=== PATIENT | male | born 2000 | race Two or more races ===

== ENCOUNTER 2023-07-13 11:12 | Outpatient (AMB) | payer OTHER, SELFPAY ==
--- NOTE | 2023-07-13 11:14 | MHC.OFFWIV ---
Intake Intake Visit Reasons: EST/cough(lobby masked) Intake Note: pt is here for c.o cough Coding
--- NOTE | 2023-07-13 11:14 | MHC.OFFWIV ---
Intake Vital Signs 07/13/23 11:16 Height 5 ft 9 in Weight 180 lb 4 oz BMI 26.6 BP 110/70 Blood Pressure Location Rt brachial Position Sitting Pulse 71 Pulse Source Pulse Oximeter Temp 98.1 F Temp Source Oral Pulse Oximetry (%) 97 Oxygen Delivery Method Room Air Intake Visit Reasons: EST/cough(lobby masked) Intake Note: Pt is here c/o cough for about one week. Pt states he has been having a headache for a few days as well as a bloody nose. Patient Tobacco Use Status: Never used Tobacco Allergies No Known Allergies Allergy (Verified 07/13/23 11:36) Medication List - Last Reconciled 07/13/23 by Stefan Sexton MD No Known Home Meds Do you need a note to return to daycare/school/sports/work: No HPI EST/cough(lobby masked) HPI Details 22-year-old male presents to the office requesting a COVID test. Patient works in the . He was asked to come here by his employer for a test. Patient has minimal symptoms of cough. PFS Social History Patient Tobacco Use Status: Never used Tobacco Physical Exam Vital Signs: Last Vital Signs Temp 98.1 F 07/13/23 11:16 Pulse 71 07/13/23 11:16 BP 110/70 07/13/23 11:16 Pulse Ox 97 07/13/23 11:16 Oxygen Delivery Method Room Air 07/13/23 11:16 BMI result Body Mass Index 26.6 Const General: cooperative, healthy appearing, comfortable and no acute distress Assessment & Plan Assessment & Plan (1) Upper respiratory tract infection: Code(s): J06.9 - Acute upper respiratory infection, unspecified Plan Viral etiology. No antibiotics needed. COVID testing done. Results given to the patient via the letter. Orders: Orders BinaxNOW Covid-19 Ag Today J06.9 - Acute upper respiratory infection, unspecified Coding Level of Care Code Est Pt Level 3 (96471) Diagnoses Upper respiratory tract infection J06.9
[2023-07-13 11:16] VITALS: BP 110/70; PULSE 71; TEMP 36.7; O2SAT 97; BMI 26.6
== END 2023-07-13 11:40 | disposition home or self-care (01) ==
PROVIDERS: Visit Provider Internal Medicine
DX: J06.9 Acute upper respiratory infection, unspecified (principal)
CPT/HCPCS: 99213

== ENCOUNTER 2023-07-13 11:27 | Outpatient (REF) | payer OTHER, SELFPAY ==
[2023-07-13 11:56] LABS: Binax Now Covid-19 Ag Negative (Negative)
[2023-07-13 12:04] LABS: Binax Performed by: HO.BONILM
[2023-07-13 12:05] LABS: Binax Internal Control QC Valid
== END 2023-07-13 11:28 | disposition home or self-care (01) ==
LOC: HO.HMGCLDS 11:27
PROVIDERS: Visit Provider Internal Medicine
DX: J06.9 Acute upper respiratory infection, unspecified (principal); Z11.52 Encounter for screening for COVID-19
CPT/HCPCS: 87811

== ENCOUNTER 2023-07-29 14:09 | Outpatient (AMB) | payer OTHER, SELFPAY ==
--- NOTE | 2023-07-29 14:40 | MHC.OFFWIV ---
Intake Vital Signs 07/29/23 14:42 Height 5 ft 9 in Weight 180 lb BMI 26.6 BP 108/68 Blood Pressure Location Lt brachial Position Sitting Pulse 72 Pulse Source Pulse Oximeter Temp 98.9 F Temp Source Oral Pulse Oximetry (%) 98 Intake Visit Reasons: EST/rash in armpits(lobby) Intake Note: pt is here for rash on armpits, unsure the cause and states its been on going for a few weeks and there is drainage Patient Tobacco Use Status: Never used Tobacco Allergies No Known Allergies Allergy (Verified 07/29/23 14:44) Do you need a note to return to daycare/school/sports/work: Yes HPI HPI Comments History of Present Illness Details 22 male patient who presents to walk in clinic with c/o lesions on axilla. Reports noticing the rash 2 weeks ago. PFSH Social History Patient Tobacco Use Status: Never used Tobacco Review of Systems Const All systems reviewed & are unremarkable except as noted in HPI and below Physical Exam Vital Signs: Last Vital Signs Temp 98.9 F 07/29/23 14:42 Pulse 72 07/29/23 14:42 BP 108/68 07/29/23 14:42 Pulse Ox 98 07/29/23 14:42 BMI result Body Mass Index 26.6 Const General: comfortable and no acute distress Skin General skin exam: turgor normal, erythema and lichenification Rashes: rashes noted (Left Axilla, red patches ) Assessment & Plan Assessment & Plan (1) Intertrigo: Code(s): L30.4 - Erythema intertrigo Plan: - Keep Area dry and clean - No deodorant Medications: New clotrimazole-betamethasone 1-0.05 % 1 appl topical BID 2 weeks 45 grams 0RF L30.4 - Erythema intertrigo hydroxyzine HCl 25 mg PO BEDTIME 14 tabs 0RF L30.4 - Erythema intertrigo Coding Level of Care Code Est Pt Level 3 (80431) Diagnoses Intertrigo L30.4 Time Spent (min) 15
[2023-07-29 14:42] VITALS: BP 108/68; PULSE 72; TEMP 37.2; O2SAT 98; BMI 26.6
== END 2023-07-29 15:56 | disposition home or self-care (01) ==
PROVIDERS: Visit Provider Nurse Practitioner Family
DX: L30.4 Erythema intertrigo (principal)
CPT/HCPCS: 99213

== ENCOUNTER 2023-09-30 08:41 | Outpatient (AMB) | payer OTHER, SELFPAY ==
[2023-09-30 08:43] VITALS: BP 110/64; PULSE 80; TEMP 36.1; O2SAT 97; BMI 27.9
--- NOTE | 2023-09-30 08:43 | AM.OFFWIN_ITS ---
Intake Vital Signs 09/30/23 08:43 Height 5 ft 9 in Weight 189 lb BMI 27.9 BP 110/64 Blood Pressure Location Lt brachial Position Sitting Pulse 80 Pulse Source Pulse Oximeter Temp 97.0 F Temp Source Temporal Artery Scan Pulse Oximetry (%) 97 Oxygen Delivery Method Room Air Intake Visit Reasons: EP RT Wallace injury Intake Note: pt is here today for rt wallace inury started wednesday Patient Tobacco Use Status: Never used Tobacco Allergies No Known Allergies Allergy (Verified 09/30/23 08:50) Do you need a note to return to daycare/school/sports/work: Yes HPI EP RT Wallace injury HPI Details This is a 22 year old male patient who presents today with right anterior ankle pain. He states he started playing indoor soccer this past Wednesday evening, and was kicked several times in the front of his right wallace/ankle. It is now sore. He denies any fall or twisting of ankle. He has put ice on the ankle for the past 2 nights. He is able to bear weight. Denies any warmth, swelling, or bruising. Is in the [employer] and has PT tomorrow which he is concerned about. [facility] Social History Patient Tobacco Use Status: Never used Tobacco Review of Systems Const All systems reviewed & are unremarkable except as noted in HPI and below Physical Exam Vital Signs: Last Vital Signs Temp 97.0 F 09/30/23 08:43 Pulse 80 09/30/23 08:43 BP 110/64 09/30/23 08:43 Pulse Ox 97 09/30/23 08:43 Oxygen Delivery Method Room Air 09/30/23 08:43 BMI result Body Mass Index 27.9 Const General: cooperative, healthy appearing, comfortable and no acute distress Resp Effort & Inspection: normal respiratory effort Skin General skin exam: no rashes or lesions noted Extrem Right lower extremity: ankle (no swelling, bruising, or crepitus, mild ttp anterior ankle) Details: normal to inspection, no edema and normal ROM and foot (normal foot exam) Details: vascular exam Details: dorsalis pedis pulse present, posterior tibial pulse present and normal capillary refill Psych Appearance: grossly normal Mental Status: mental status grossly normal Speech and movement: Normal speech and movement present Assessment & Plan Assessment & Plan (1) Right ankle injury: Code(s): S99.911A - Unspecified injury of right ankle, initial encounter Qualifiers: Encounter type: initial encounter Qualified Code(s): S99.911A - Unspecified injury of right ankle, initial encounter Plan: Patient likely has mild sprain vs. soft tissue injury at the anterior aspect of his right ankle. No swelling, bruising, warmth, crepitus. LE exam is normal. I have prescribed him an antiinflammatory and applied MK wrap to that right ankle today. Advised he apply ice intermittently and elevate when able to. Work note provided to omit him from PT with [employer] tomorrow as scheduled and for allowed rest on ankle for the next several days. If he does not improve with time and conservative measures, or if any symptoms worsen, he should return to the clinic for further evaluation. He agrees to plan. Medications: New meloxicam 15 mg PO DAILY 7 days 7 tabs 0RF S99.911A - Unspecified injury of right ankle, initial encounter Coding Level of Care Code Est Pt Level 4 (65708) Diagnoses Injury of right ankle, initial encounter S99.911A Encounter type: initial encounter
== END 2023-09-30 09:21 | disposition home or self-care (01) ==
PROVIDERS: Visit Provider Nurse Practitioner Family
DX: S99.911A Unspecified injury of right ankle, initial encounter (principal)
CPT/HCPCS: 99214

== ENCOUNTER 2024-01-19 09:00 | Outpatient (AMB) | payer OTHER, SELFPAY ==
[2024-01-19 09:50] VITALS: BP 120/82; PULSE 88; TEMP 37.1; O2SAT 98; BMI 28.1
--- NOTE | 2024-01-19 09:50 | AM.OFFWIN_ITS ---
Intake Vital Signs 01/19/24 09:50 Height 5 ft 9 in Weight 190 lb 8 oz BMI 28.1 BP 120/82 Blood Pressure Location Rt brachial Position Sitting Pulse 88 Pulse Source Pulse Oximeter Temp 98.8 F Temp Source Temporal Artery Scan Pulse Oximetry (%) 98 Oxygen Delivery Method Room Air Intake Visit Reasons: EP headache, runny nose, sore throat Intake Note: Quentin is a 23 year old who presents to the office today for a headache,runny nose, and sore throat that started yesterday and got worse overnight. Patient Tobacco Use Status: Never used Tobacco Allergies No Known Allergies Allergy (Verified 01/19/24 09:52) HPI HPI Comments History of Present Illness Details Patient is a 23-year-old male complaining of a headache, sore throat and runny nose x2 days. He denies any ear pain, chest pain, shortness of breath or fevers. He states he took some DayQuil before bed last night and that seemed to help a little bit. He denies any sick contacts at home [facility] Social History Patient Tobacco Use Status: Never used Tobacco Review of Systems Const All systems reviewed & are unremarkable except as noted in HPI and below Physical Exam Vital Signs: Last Vital Signs Temp 98.8 F 01/19/24 09:50 Pulse 88 01/19/24 09:50 BP 120/82 01/19/24 09:50 Pulse Ox 98 01/19/24 09:50 Oxygen Delivery Method Room Air 01/19/24 09:50 BMI result Body Mass Index 28.1 Const General: cooperative, healthy appearing, comfortable and no acute distress Orientation/consciousness: patient oriented x3 Limitations: no limitations HEENT Head: Yes normal to inspection Ears: hearing grossly normal bilaterally, external ears normal and TM abnormal erythematous bilateral General nose exam: Normal external nose present, Normal nares present and No nasal discharge present Face and sinus: Yes normal facial exam and Yes sinus tenderness (Ethmoid) Mouth: Normal oral and palatal mucosa present and moist mucous membranes Throat: Yes tonsils normal, Yes uvula midline and Yes posterior oropharynx abnormal (Erythema) Eyes General: appearance normal, both eyes and all related structures Neck Neck: Yes normal visual inspection Resp Effort & Inspection: normal respiratory effort, able to speak in complete sentences, no respiratory distress, not tachypneic, no tripod positioning and no use of accessory muscles Auscultation: clear to auscultation bilaterally Cardio Rate: regular rate Rhythm: regular rhythm Heart sounds: normal S1 and S2 Skin General skin exam: no rashes or lesions noted Neuro General: patient oriented x3 Extrem General: Yes normal to inspection and Yes no clubbing, cyanosis or edema Results AMB Rapid Strep AMB Rapid Strep Negative Last Edit by Louise Whittaker CMA on 01/19/24 10:07 Assessment & Plan Assessment & Plan (1) Acute sinusitis: Code(s): J01.90 - Acute sinusitis, unspecified Plan: Likely sinusitis, possibly secondary to COVID. In office rapid strep was negative. Educated patient that most sinus infections are viral and he should treat himself with [id number] cold and allergy medications, nasal saline rinses and drinking plenty of fluids. Plan See above Orders: Orders AMB Rapid Strep Screen Today Z13.9 - Encounter for screening, unspecified SARS-CoV2/FLU/RSV Today J06.9 - Acute upper respiratory infection, unspecified Coding Level of Care Code New Pt Level 3 (60833) Diagnoses Acute sinusitis J01.90
== END 2024-01-19 10:17 | disposition home or self-care (01) ==
PROVIDERS: Visit Provider Physician Assistant
DX: Z13.9 Encounter for screening, unspecified (principal); J01.90 Acute sinusitis, unspecified
CPT/HCPCS: 87880; 99203

== ENCOUNTER 2024-01-19 10:11 | Outpatient (REF) | payer OTHER, SELFPAY ==
[2024-01-19 14:11] LABS: Influenza A PCR NEGATIVE (Negative); Influenza B PCR NEGATIVE (Negative); Resp Syncy Virus RNA Qual PCR NEGATIVE (Negative); SARS COV2 PCR INHOUSE POSITIVE (Negative)
== END 2024-01-19 10:12 | disposition home or self-care (01) ==
LOC: HO.LAB 10:11
PROVIDERS: Visit Provider Physician Assistant
DX: J06.9 Acute upper respiratory infection, unspecified (principal)
CPT/HCPCS: 0241U

== ENCOUNTER 2024-07-12 08:17 | Outpatient (REF) | payer OTHER, SELFPAY ==
--- NOTE | ~2024-07-12 | XR_ITS ---
EXAMINATION: XR TIBIA FIBULA 2 VIEWS LEFT HISTORY: S86.248Y - Other injury of other muscle(s) and tendon(s) at lower leg le... COMPARISON: There are no prior studies available for comparison. FINDINGS: AP and lateral views of the left tibia and fibula are submitted. Osseous mineralization is normal. There is a tiny lucency in the anterolateral cortex of the midshaft of the tibia which could represent a stress reaction. No displaced fracture is seen . The visualized knee and ankle joint spaces are maintained. The soft tissues are unremarkable. XR/XR tibia fibula LT 2V IMPRESSION: Tiny lucency in the anterolateral cortex of the mid tibia which could represent a stress reaction. This could be confirmed with MRI if indicated. Electronically signed by: Lei Villavicencio MD 07/12/2024 10:15 AM JUDY BRITO
--- OUTSIDE RECORDS SUMMARY | 2024-07-12 09:49 | XMS_ITS | Continuity of Care Document ---
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 [address] [place], [address], . tel:[phone] OFFICE/OUTPAT IENT VISIT, EST [facility], [address], [place], [id number], [place] tel:[phone] MEDICAL WC rash on legs (chief complaint) Rash and other nonspecific skin eruption 2 No Information [facility], [address] [place], [id number], [place] tel:[phone] MEDICAL WC No Information 2-201 0 Ancillary Provider. [address] [place], [address], . tel:[phone] PREV VISIT, EST, AGE 5-11YRS OLD [facility], [address], [place], [id number], tel:[phone] MEDICAL WC No Information October- 0-201 0 Xavier Li. [address] [place], [address], [place]. tel:[phone] Family History Family Member Type Diagnosis Age At Onset No Information Payers Payer name Insurance type Covered alliance party ID Authoriza tion(s) No Information Social [...]
--- OUTSIDE RECORDS SUMMARY | 2024-07-12 09:49 | XMS_ITS | Continuity of Care Document ---
Author Name [facility] Organization [facility] Care Team Providers Care Schedule Clerk Name Role Phone [facility] Unavailable Unavailable Medications Combined list of outpatient [...] Acute, 11/05/21 2:00:00 AM CDT, Pharmacy : [facility] Oral (given by mouth) Complet ed 11/05/2021 16.0 [facility]30[facility] CLOTRIMAZOL E-BETAMETHA SONE (CLOTRIMAZO LE/BETAMET DIPROP), 1-0.05%, CREAM(GM), TOPICAL, ACTAVIS MID LINDA, 45 g TUBE Active [id number] 2023 45 Pharmac y Data Transac tion Service Facilit y guaiFENesin 600 mg oral tablet, extended release 1 tab(s), Oral, every 12 hr, # 20 tab(s), 0 total refill(s ), Acute, 10/25/21 2:00:00 AM CDT, Pharmacy : [facility] Oral (given by mouth) Complet ed 10/25/2021 20.0 [facility] hydrocortis one 1% topical cream 1 appl(s), Topical, BID, apply in a thin film to the affected skin and rub in gently and complete ly, # 28 g, 0 total refill(s ), Acute, Pharmacy : [facility] Topica l (on the skin) Complet ed 11/07/2021 28.0 [facility]30[facility] HYDROXYZINE HCL (hydroxyzin e HCl), 25 MG, TABLET, ORAL, AVET PHARMACEUT, 500 ea. BOTTLE Active [id number] 4 2023 14 Pharmac y Data Transac tion Service Facilit y ibuprofen 800 mg oral tablet 1 tab(s), Oral, every 8 hr, with food or milk, # 12 tab(s), 0 total refill(s ), Acute, 10/11/21 2:00:00 AM CDT, Pharmacy : [facility] Oral (given by mouth) Complet ed 10/11/2021 12.0 [facility] Meloxicam (Meloxicam) , 15mg, Tablet, Oral, [employer] Pharmac, 1000 Ea. Bottle Active [id number] 2023 7 Pharmac y Data Transac tion Service Facilit y menthol-pradeep zocaine 3.6 mg-15 mg mucous membrane lozenge 1 lozenge( s), Oral, every 2 hr, PRN sore throat, # 16 EA, 0 total refill(s ), Acute, 10/21/21 2:00:00 AM CDT, Pharmacy : [facility] Oral (given by mouth) Complet ed 10/21/2021 16.0 [facility] Mucinex 600 mg oral tablet, extended release 1 tab(s), Oral, every 12 hr, # 20 tab(s), 0 total refill(s ), Acute, 11/05/21 2:00:00 AM CDT, Pharmacy : [facility] Oral (given by mouth) Complet ed 11/05/2021 20.0 [facility] pseudoePHED rine 120 mg oral tablet, extended release 1 tab(s), Oral, every 12 hr, PRN cold symptoms , # 10 tab(s), 0 total refill(s ), Acute, 10/21/21 2:00:00 AM CDT, Pharmacy : [facility] Oral (given by mouth) Complet ed 10/21/2021 10.0 [facility]30[facility] Tessalon Perles 100 mg oral capsule 1 cap(s), Oral, every day at bedtime, PRN cough, do not crush or chew, X 10 days, # 10 cap(s), 0 total refill(s ), Acute, 10/26/21 9:56:00 AM CDT, Pharmacy : [facility] Oral (given by mouth) Complet ed 10/26/2021 10.0 [facility] Tylenol 325 mg oral tablet 2 tab(s), Oral, every 6 hr, PRN pain or fever, # 12 tab(s), 0 total refill(s ), Acute, 10/21/21 2:00:00 AM CDT, Pharmacy : [facility] Oral (given by mouth) Complet ed 10/21/2021 12.0 [facility] Immunizations Combined list of available immunizations from the Department of Defense and Veterans Affairs facilities. Immunization Series Date Given Administered By Site Reaction Lot Number CVX Code Drug Operations Manager/Coordinator Status Comments Source poliovirus vaccine, inactivated 2021 CARLY ER Arm, left upper [id number] sanofi pasteur complet ed polioviru s vaccine, inactivat ed 12/16/21 Given [facility] adenovirus vaccine, live 2021 CHIDIOANYATA [id number] 143 [employer] [facility] complet ed adenoviru s vaccine, live 11/14/21 Given [facility] tetanus, diphtheria, acellular pertu is 2021 ELTON Garzaul mari, left (delt oid) [id number] sanofi pasteur complet ed tetanus, diphtheri a, acellular pertussis 11/14/21 Given [facility] meningococcal conjugate vaccine 2021 ELTON Garzaul mari, left (delt oid) [id number] 114 sanofi pasteur complet ed meningoco ccal conjugate vaccine 11/14/21 Given [facility] COVID Vaccine Pfizer 2021 VANESSAMONTIE L Shoul mari, left (delt oid) [id number] PFIZER complet ed COVID Vaccine Pfizer 09/30/21 Given [facility] tuberculin purified protein derivative 2021 TAYLORPROBINS ON Arm, left forea rm [id number] sanofi pasteur complet ed tuberculi n purified protein derivativ e 09/30/21 Given [facility] influenza virus vaccine, inactivated 2021 CHEJUAN FRANCISCOPALM ER Shoul mari, right (delt oid) [id number] GlaxoSmithKli ne complet ed influenza virus vaccine, inactivat ed 09/30/21 Given [facility] Results Combined list of recent chemistry, hematology [...] Prevention' s HIV diagnostic algorithm. Refer to [facility] Lab Guide for additional information : [email or web address] x Testing performed by [facility] Miscella neous Sendouts Repository Sample Received (12/27/23 9:04 AM) 12/26 N [facility] Hematolo gy WBC 8.74 10^3/uL 4.00 - 10.75975 10/29 N [facility] Hematolo gy RBC 5.10 10^6/uL 4.40 - 5.61609 10/29 N [facility] Hematolo gy [...] Hematolo gy Platelets 245 10^3/uL 150 - [id number] 10/29 N [facility] Hematolo gy MPV 10.7 fL 6.4 - 10.3 10/29 H [facility] Hematolo gy RDW CV 12.7 % 11.5 - 14.0 10/29 N [facility] Hematolo gy Differenti al? Auto (10/29/21 9:33 AM) 10/29 N [facility] Immunolo gy/Serol ogy [place] Screen Negative (10/29/21 9:33 AM) 10/29 N [facility] Hematolo gy Neutro Absolute 5.8 10^3/uL 2.0 - 7.0103 10/29 N [facility] Hematolo gy Lymph Absolute 1.97 10^3/uL 1.00 - 4.60027 10/29 N [facility] Hematolo gy [place] Absolute 0.58 10^3/uL 0.20 - 0.77150 10/29 N [facility] Hematolo gy Eos Absolute 0.28 10^3/uL 0.00 - 7.24689 10/29 N [facility] Hematolo gy Baso Absolute 0.06 10^3/uL 0.00 - 0.28845 10/29 N [facility] Hematolo gy Imm. Granulocyt e Absolute 0.05 10^3/uL 0.00 - 0.96429 10/29 N [facility] Hematolo gy [...] following a hemolytic event. [facility]formed At: [facility] [address] Belinda Aguilar [address] [place], [place] [id number] Vazquez Rubio MD Ph:[phone] [facility] Immunolo gy/Serol ogy [...] LC NEGATIVE 09/30 Result Comment: Performed At: [address] [place] [address] FOR DISEASE DETECTION [address] [place] [address] [address] [place] [address] ALEJO LARKIN PHD Ph:[phone] [facility] Hematolo gy HgB Solub.LC Negative 09/30 Result Comment: Since a variety of conditions and other abnormal hemoglobins in addition to Hemoglobin S may give false- positive results, positive Hemoglobin Solubility tests should be confirmed by hemoglobin fractionati on testing. [facility]formed At: [facility] [address] [place] [address] [id number] Vazquez Rubio MD Ph:[phone] [facility] Blood Bank ABO Grouping.L C O 09/30 [facility] Blood Bank Rh Factor.LC Positive 09/30 Result Comment: Please note: Prior records for this patient's ABO / Rh type are not available for additional verificatio n. [facility]formed At: [facility] [address] [place]ino [facility] [address] [place], [place] [id number] Vazquez Rubio MD Ph:[phone] [facility] Immunolo gy/Serol ogy [...] or previous vaccination . Performed At: 01 [facility] [place] [address] Belinda Aguilar [address] [place], [place] [id number] Vazquez Rubio MD Ph:[phone] [facility] Immunolo gy/Serol ogy VZV IgG LC 307 index 09/30 Result Comment: Negative <135 Equivocal 135 - 165 Positive >165 A positive result generally indicates exposure to the pathogen or administrat ion of specific immunoglobu shira, but it is not indication of active infection or stage of disease. Performed At: [address] [facility] [place] [address] Belinda Aguilar [address] [place], [place] [id number] Vazquez Rubio MD Ph:[phone] [facility] Vital Signs Combined [...] list of: 1) Encounters from Department of [facility] facilities going back up to [facility] 18 months. 2) Encounters from the Department [facility] facilities going back up to 280 months. Location Location Details Encounter Type Encounter Number Reason For Visit Attending Provider ADM Date DC Date Status Disposition Source [id number] [facility] Outpatient [id number] [facility] 12/26 Discharge Disposition: Home or Self Care [id number] AMDS [id number] AMDS Outpatient [id number] [facility] 01/16 Discharge Disposition: Home or Self Care [id number] AMDS Procedures Combined list of: 1) Procedures from [facility] facilities going back up to [facility] 18 months, not all VA non-surgical procedures are included; 2) All procedures from the Department of [facility] facilities. Procedure Procedure Type Code Date Perfomer Comments Sourc e No data available for this section Ambulatory P harmacy Social History Combined list of available smoking, tobacco, and other social history from Department of Defense and Veterans Affairs facilities. Social History Type Response Date Comment Emir laws Male 09/25/2021 Ambulatory Pha rmacy This section is an empty social history section. [facility] Tobacco Never-cigarette user Cigarette use:. Never-other tobacco user (not cigarettes) Other Tobacco use:. Ambulatory Pharmacy Sexual Orientation [facility]acy Gender identity [facility] Assessment and Plan Combined list of future care activities from Department of Defense and Veterans Affairs facilities (e.g., assessment and plan notes, appointments, orders, and referrals). Additional future care activities may be listed in the Plan of Care section. Result Assessment and Plan Date Source Assessment and Plan Extracted from:Title : OSS Author: YOLANDA UGALDE Date: 05/06/22 1.?Screening due see uploaded signed forms. [facility] Yolanda Ugalde [facility], [phone] Extracted from:Title: FU Rash to Lower Mid-axillary [...] soaked clothing immediately. ? Follow up in [facility] Medical PRN if symptoms persists or worsened. [...] with:?Dermatitis ?? PCP ? Follow up in [facility] as needed. Seek care immediately if with [...] prescribed. ? PCP ? Follow up in [facility] as needed. Seek care immediately if with Intractable Pain, Fever, Chest Pain or Difficulty Breathing. Educated on assessment and plan. He voiced understanding. ? I agree with above note and assessment. ? Examined patient. Negative [place] Screen. No leukocytosis. CXR Normal ? Discussed [...] 2 hr,PRN:as needed for sore throat, Pharmacy: [facility] [Last filled 10/29/21] guaiFENesin(Mucinex 600 mg oral tablet, extended release), 1 tab(s), Oral, every 12 hr, # 20 tab(s), 0 total refill(s), Acute, 11/05/2021, 1 tab(s) Oral every 12 hr, Pharmacy: [facility] [Last filled 10/29/21] pseudoephedrine(pseudoePHEDrine 120 mg oral tablet, extended release), 1 tab(s), Oral, every 12 hr, PRN cold symptoms, # 20 tab(s), 0 total refill(s), Acute, 11/05/2021, 1 tab(s) Oral every 12 hr,PRN:as needed for cold symptoms, Pharmacy: [facility] [Last filled 10/29/21] benzonatate(Tessalon Perles 100 mg oral capsule), See Instructions, PRN cough, Take 1 pill 30 minutes prior to bed, # 8 cap(s), 0 total refill(s), Acute, 11/06/2021, Take 1 pill 30 minutes prior to bed,PRN:as needed for cough, Pharmacy: [facility] [Last filled 10/29/21] acetaminophen(Tylenol 325 mg oral tablet), 1 tab(s), Oral, every 4 hr, PRN pain or fever, # 12 tab(s), 0 total refill(s), Acute, 11/05/2021, 1 tab(s) Oral every 4 hr,PRN:as needed for pain or fever, Pharmacy: [facility] [Last filled 10/29/21] *Differential Automated Extracted [...] PCP Phase 3. ? Follow up in [facility] PRN. Seek care immediately if with Intractable Pain, Fever, Chest Pain or Difficulty Breathing. Educated on assessment and plan. He voiced understanding. ? Agree with above. HD stable and afebrile. Supportive care. Plan as above. ? [facility]itt [facility], [facility] Phys[facility]? Extracted from:Title: Office Clinic Note Author: KADE [...] ? PCP?Phase 3 ? Follow up in [facility] for RTFD. Seek care immediately if with Intractable Pain, Fever, Chest Pain or Difficulty Breathing. Educated on assessment and plan. He voiced understanding. ? Agree with above. Chest wall pain resolved. Cleared to test out when able. ? Bert [facility]itt [facility], [facility] Physician [facility]? Extracted from:Title: Office Clinic Note Author: KADE [...] ? MRP Phase?2 ? Follow up in [facility] , plan for phase 3 if without [...] every 8 hr,Instr:with food or milk, Pharmacy: [facility] [Last filled 10/06/21] ? I agree with above note and assessment. Examined patient. Discussed assessment and plan. Proceed with plan as outlined above. RRQ. ? ? 07/12/2024 Ambulatory Pharmacy Functional Status Combined list of recent functional and cognitive assessments recorded at Department of Defense and Veterans Affairs (VA).VA Functional [place] Measurement (FIM) Scale: 1 = Total Assistance (Subject = 0% +), 2 = Maximal Assistance (Subject = 25% +), 3 = Moderate Assistance (Subject = 50% +), 4 = Minimal Assistance (Subject = 75% +), 5 = Supervision, 6 = Modified [place] (Device), 7 = Complete [place] (Timely, Safely). Assessment Date/Time Source Assessment Type Assessment Skill Assessment Score Assessment Details No data available for this section
== END 2024-07-12 08:18 | disposition home or self-care (01) ==
LOC: HO.HMGCX 08:17
PROVIDERS: Visit Provider Physician Assistant
DX: S86.892A Other injury of other muscle(s) and tendon(s) at lower leg level, left leg, initial encounter (principal); X58.XXXA Exposure to other specified factors, initial encounter; Y93.9 Activity, unspecified; Y92.9 Unspecified place or not applicable; Y99.9 Unspecified external cause status
CPT/HCPCS: 73590; 99212

== ENCOUNTER 2024-07-12 08:17 | Outpatient (AMB) | payer OTHER, SELFPAY ==
--- OUTSIDE RECORDS SUMMARY | 2024-07-12 08:25 | XMS_ITS ---
Author Name [facility] History of Medication Use Medication Directions Dispensed Refills Start Date End Date Stat magic mouthwash oral suspension (mixture) Swish and spit 15 mL 4 (four) times a day as needed for mucositis or stomatitis. 04/27/2024 9 active ondansetron (ZOFRAN-ODT) 4 MG disintegrating tablet Take 1 tablet (4 mg total) by mouth 3 times daily (every 8 hours) as needed for nausea or vomiting. Place tablet on tongue to dissolve. 04/27/2024 9 active lidocaine (XYLOCAINE) 2 % solution Take 5 mL by mouth 4 (four) times a day as needed for mild pain. Swish and spit. 04/27/2024 9 active aluminum-magnesium hydroxide-simethicon e (MYLANTA) suspension 15 mL 15 mL, Oral, Once, On Wed04/25/24 at 1000, For 1 dose 04/27/2024 9 completed No known medications No known medications 03/29/2024 active Problems Problem Status Onset Date Problem Type Date of Resoluti on Source Acute gastritis without hemorrhage, unspecified gastritis type active EncounterDiagnosisAct [facility] T
--- OUTSIDE RECORDS SUMMARY | 2024-07-12 08:25 | XMS_ITS | Continuity of Care Document ---
Author Organization [facility] Address [address] [place] [address] Phone Care Team Providers Care Security Team Lead Name Role Phone Ingris Xavier MD Unavailable [...] Diagnoses Date Provider Providers Copied on Encounter [facility], [address], [place], [id number], tel:[phone] MEDICAL WC No Information 2 Duc Amado. [address] [place], [address], . tel:[phone] OFFICE/OUTPAT IENT VISIT, EST [facility], [address], [place], [id number], [place] tel:[phone] MEDICAL WC rash on legs (chief complaint) Rash and other nonspecific skin eruption 2 No Information [facility], [address] [place], [id number], [place] tel:[phone] MEDICAL WC No Information 2-201 0 Ancillary Provider. [address] [place], [address], . tel:[phone] PREV VISIT, EST, AGE 5-11YRS OLD [facility], [address], [place], [id number], tel:[phone] MEDICAL WC No Information October- 0-201 0 Xavier Li. [address] [place], [address], [place]. tel:[phone] Family History Family Member Type Diagnosis Age [...]
--- OUTSIDE RECORDS SUMMARY | 2024-07-12 08:25 | XMS_ITS | Continuity of Care Document ---
Author Name [facility] Organization [facility] Care Team Providers Care Driver Salesman Name Role Phone [facility] Unavailable Unavailable Medications Combined list of outpatient medications from Department of Defense and Veterans Affairs facilities.Medications provided include 1) outpatient medications from the last 15 months, and 2) patient-reported medications. Medication Details Route Status Patient Instructions Prescription Expires Prescription Number Last Dispense Date Ordering Provider Order Date Order Qty Source Cepacol Sore Throat 15 mg-3.6 mg mucous membrane lozenge 1 lozenge( s), Oral, every 2 hr, PRN sore throat, # 16 EA, 0 total refill(s ), Acute, 11/05/21 2:00:00 AM CDT, Pharmacy : [facility] Oral (given by mouth) Complet ed 11/05/2021 16.0 0230C-N [facility] CLOTRIMAZOL E-BETAMETHA SONE (CLOTRIMAZO LE/BETAMET DIPROP), 1-0.05%, CREAM(GM), TOPICAL, ACTAVIS MID LINDA, 45 g TUBE Active [id number] 2023 45 Pharmac y Data Transac tion Service Facilit y guaiFENesin 600 mg oral tablet, extended release 1 tab(s), Oral, every 12 hr, # 20 tab(s), 0 total refill(s ), Acute, 10/25/21 2:00:00 AM CDT, Pharmacy : [facility] Oral (given by mouth) Complet ed 10/25/2021 20.0 0230C-N [facility] hydrocortis one 1% topical cream 1 appl(s), Topical, BID, apply in a thin film to the affected skin and rub in gently and complete ly, # 28 g, 0 total refill(s ), Acute, Pharmacy : [facility] Topica l (on the skin) Complet ed 11/07/2021 28.0 0230C-N [facility] HYDROXYZINE HCL (hydroxyzin e HCl), 25 MG, TABLET, ORAL, [facility], 500 ea. BOTTLE Active [id number] 2023 14 Pharmac y Data Transac tion Service Facilit y ibuprofen 800 mg oral tablet 1 tab(s), Oral, every 8 hr, with food or milk, # 12 tab(s), 0 total refill(s ), Acute, 10/11/21 2:00:00 AM CDT, Pharmacy : [facility] Oral (given by mouth) Complet ed 10/11/2021 12.0 0230C-N [facility] Meloxicam (Meloxicam) , 15mg, Tablet, Oral, [employer] [facility], 1000 Ea. Bottle Active [id number] 2023 7 Pharmac y Data Transac tion Service Facilit y menthol-pradeep zocaine 3.6 mg-15 mg mucous membrane lozenge 1 lozenge( s), Oral, every 2 hr, PRN sore throat, # 16 EA, 0 total refill(s ), Acute, 10/21/21 2:00:00 AM CDT, Pharmacy : [facility] Oral (given by mouth) Complet ed 10/21/2021 16.0 0230C-N [facility] Mucinex 600 mg oral tablet, extended release 1 tab(s), Oral, every 12 hr, # 20 tab(s), 0 total refill(s ), Acute, 11/05/21 2:00:00 AM CDT, Pharmacy : [facility] Oral (given by mouth) Complet ed 11/05/2021 20.0 0230C-N [facility] pseudoePHED rine 120 mg oral tablet, extended release 1 tab(s), Oral, every 12 hr, PRN cold symptoms , # 10 tab(s), 0 total refill(s ), Acute, 10/21/21 2:00:00 AM CDT, Pharmacy : [facility] Oral (given by mouth) Complet ed 10/21/2021 10.0 0230CN [facility] Tessalon Perles 100 mg oral capsule 1 cap(s), Oral, every day at bedtime, PRN cough, do not crush or chew, X 10 days, # 10 cap(s), 0 total refill(s ), Acute, 10/26/21 9:56:00 AM CDT, Pharmacy : [facility] Oral (given by mouth) Complet ed 10/26/2021 10.0 0230C-N [facility] Tylenol 325 mg oral tablet 2 tab(s), Oral, every 6 hr, PRN pain or fever, # 12 tab(s), 0 total refill(s ), Acute, 10/21/21 2:00:00 AM CDT, Pharmacy : [facility] Oral (given by mouth) Complet ed 10/21/2021 12.0 0230C-N [facility] Immunizations Combined list of available immunizations from the Department of Defense and Veterans Affairs facilities. Immunization Series Date Given Administered By Site Reaction Lot Number CVX Code Drug Media Relations Manager Status Comments Source poliovirus vaccine, inactivated 2021 CARLY ER Arm, left upper [id number] sanofi pasteur complet ed polioviru s vaccine, inactivat ed 12/16/21 Given 0230A-N [facility] adenovirus vaccine, live 2021 CHIDIOANYATA [id number] 143 [employer] [facility] complet ed adenoviru s vaccine, live 11/14/21 Given 0230A-N [facility] tetanus, diphtheria, acellular pertu is 2021 ELTON Garzaul mari, left (delt oid) [id number] sanofi pasteur complet ed tetanus, diphtheri a, acellular pertussis 11/14/21 Given 0230A-N [facility] meningococcal conjugate vaccine 2021 ELTON Garzaul mari, left (delt oid) [id number] sanofi pasteur complet ed meningoco ccal conjugate vaccine 11/14/21 Given 0230A-N [facility] COVID Vaccine Pfizer 2021 VANESSAMONTIE L Shoul mari, left (delt oid) [id number] PFIZER complet ed COVID Vaccine Pfizer 09/30/21 Given 0230A-N [facility] tuberculin purified protein derivative 2021 TAYLORPROBINS ON Arm, left forea rm [id number] sanofi pasteur complet ed tuberculi n purified protein derivativ e 09/30/21 Given 0230A-N [facility] influenza virus vaccine, inactivated 2021 CHEJUAN FRANCISCOPALM ER Shoul mari, right (delt oid) [id number] GlaxoSmithKli ne complet ed influenza virus vaccine, inactivat ed 09/30/21 Given 0230A-N [facility] Results Combined list of recent chemistry, hematology and other laboratory results from Department of Defense and Veterans Affairs, ranging from 15 months to all on record, depending upon the facility. Order Name Results Value Reference Range Date Interpretation Specimen Comments Source Infectio us Disease HIV-1/O/2 Non-Reac tive 10 (12/27/23 9:04 AM) 12/26 N Interpretiv e Data: INTERPRETAT ION: This method is a screening procedure for the detection of HIV p24 Antigen and Antibodies to HIV-1, including Group O, and/or HIV-2. NON-REACTIV E: HIV-1 antigen and HIV-1 / HIV-2 antibodies were not detected. No laboratory evidence of HIV infection. A negative test result does not exclude the possibility of exposure to or infection with HIV. HIV antibodies and/or p24 antigen may be undetectabl e in some stages of the infection and in some clinical conditions. If acute HIV infection is suspected, consider submitting another specimen to a reference laboratory for HIV-1 RNA. SCREEN REACTIVE - CONFIRMATIO N TO FOLLOW: Possible presence of HIV-1antibo dies, HIV-2 antibodies and/or HIV-1 p24 antigen. Specimen will reflex to the confirmatio n testing that fulfills the Center for Disease Control and Prevention' s HIV diagnostic algorithm. Refer to [facility] Lab Guide for additional information : [email or web address] x Testing performed by [facility] Miscella neous Sendouts Repository Sample Received (12/27/23 9:04 AM) 12/26 N [facility] Hematolo gy WBC 8.74 10^3/uL 4.00 - 10.07612 10/29 N [facility] Hematolo gy RBC 5.10 10^6/uL 4.40 - 5.69796 10/29 N [facility] Hematolo gy Hemoglobin 14.9 g/dL 13.8 - 17.0 10/29 N [facility] Hematolo gy Hematocrit 46.5 % 40.0 - 50.0 10/29 N [facility] Hematolo gy MCV 91.2 fL 82.0 - 99.0 10/29 N [facility] Hematolo gy MCH 29.2 pg 28.0 - 33.0 10/29 N [facility] Hematolo gy MCHC 32.0 g/dL 32.0 - 36.0 10/29 N [facility] Hematolo gy Platelets 245 10^3/uL 150 - [id number] 10/29 N [facility] Hematolo gy MPV 10.7 fL 6.4 - 10.3 10/29 H [facility] Hematolo gy RDW CV 12.7 % 11.5 - 14.0 10/29 N [facility] Hematolo gy Differenti al? Auto (10/29/21 9:33 AM) 10/29 N [facility] Immunolo gy/Serol ogy Stephens Screen Negative (10/29/21 9:33 AM) 10/29 N [facility] Hematolo gy Neutro Absolute 5.8 10^3/uL 2.0 - 7.0103 10/29 N [facility] Hematolo gy Lymph Absolute 1.97 10^3/uL 1.00 - 4.71704 10/29 N [facility] Hematolo gy Stephens Absolute 0.58 10^3/uL 0.20 - 0.79999 10/29 N [facility] Hematolo gy Eos Absolute 0.28 10^3/uL 0.00 - 7.85748 10/29 N [facility] Hematolo gy Baso Absolute 0.06 10^3/uL 0.00 - 0.34191 10/29 N [facility] Hematolo gy Imm. Granulocyt e Absolute 0.05 10^3/uL 0.00 - 0.20070 10/29 N [facility] Hematolo gy Neutrophil % Auto 66.4 % 40.0 - 80.0 10/29 N [facility] Hematolo gy Lymphocyte % Auto 22.5 % 15.0 - 45.0 10/29 N [facility] Hematolo gy Monocyte % Auto 6.6 % 4.0 - 11.0 10/29 N [facility] Hematolo gy Eosinophil % Auto 3.2 % 0.0 - 6.0 10/29 N [facility] Hematolo gy Basophil % Auto 0.7 % 0.0 - 4.0 10/29 N [facility] Hematolo gy Imm. Granulocyt e % 0.6 % 0.0 - 2.0 10/29 N [facility] Hematolo gy Hemoglobin .LC 16.1 g/dL 09/30 [facility] Hematolo gy G-6-PD, Quant LC 9.6 unit/gHb 09/30 Result Comment: When decreased, G-6-PD, Quant. values are associated with acute hemolytic anemia when deficient individuals are exposed to oxidative stress, such as with certain medications (e.g., primaquine) , infection, or ingestion of gerry beans. Caution: In patients with acute hemolysis (e.g., abnormally low RBC values), testing for G-6-PD may be falsely normal because older erythrocyte s with a higher enzyme deficiency have been hemolyzed. Young erythrocyte s and reticulocyt es have normal or near-normal enzyme activity. Normal values of G-6-PD may be measured for several weeks following a hemolytic event. Performed At: [address] [facility] [address] [address] Belinda Aguilar [address] [place], [place] [phone] Vazquez Rubio MD [phone] [facility] Immunolo gy/Serol ogy Hep A Ab Reactive 1 (09/30/21 12:05 PM) 09/30 N Interpretiv e Data: A non-reactiv e result denotes a lack of protective immunity. A reactive result denotes protective immunity by vaccination or prior infection. Use of biotin supplements greater than 10 mg/day has been shown to affect the accuracy of this test. Providers should encourage patients to cease all biotin supplements for a minimum of 72 hours before phlebotomy to avoid interferenc e. [facility] Miscella neous Sendouts DNA Sample Collected? YES 09/30 [facility] Infectio us Disease Source of Test.LC Gen Force Test (09/30/21 12:05 PM) 09/30 N [facility] Infectio us Disease HBSAb CDD LC POSITIVE 09/30 A [facility] Infectio us Disease HCVAB CDD LC NEGATIVE 09/30 [facility] Infectio us Disease HBSAg CDD LC NEGATIVE 09/30 [facility] Infectio us Disease HIV-1/2 AG/AB 4G CDD LC NEGATIVE 09/30 Result Comment: Performed At: [address] [place] [address] FOR DISEASE DETECTION [address] [place] [address] [address] [place] [address] ALEJO LARKIN PHD [phone] [facility] Hematolo gy HgB Solub.LC Negative 09/30 Result Comment: Since a variety of conditions and other abnormal hemoglobins in addition to Hemoglobin S may give false- positive results, positive Hemoglobin Solubility tests should be confirmed by hemoglobin fractionati on testing. [facility]formed At: [facility] [address] [address] [place] [address] [id number] Vazquez Rubio MD [phone] [facility] Blood Bank ABO Grouping.L C O 09/30 [facility] Blood Bank Rh Factor.LC Positive 09/30 Result Comment: Please note: Prior records for this patient's ABO / Rh type are not available for additional verificatio n. Performed At: [facility] [address] [address] [place] [facility] [address] [place], [place] [id number] Vazquez Rubio MD Ph:[phone] [facility] Immunolo gy/Serol ogy Rubella Abs IgG LC 1.88 index 09/30 Result Comment: Non-immune <0.90 Equivocal 0.90 - 0.99 Immune >0.99 [facility] Immunolo gy/Serol ogy Rubeola Ab IgG LC >300.0 Aunit/mL 09/30 Result Comment: Negative <13.5 Equivocal 13.5 - 16.4 Positive >16.4 Presence of antibodies to Rubeola is presumptive evidence of immunity except when acute infection is suspected. [facility] Immunolo gy/Serol ogy Mumps Ab IgG LC 52.2 Aunit/mL 09/30 Result Comment: Negative <9.0 Equivocal 9.0 - 10.9 Positive >10.9 A positive result generally indicates past exposure to Mumps virus or previous vaccination . Performed At: [address] [place] [address] [address] Belinda Aguilar [address] [place], [place] [id number] Vazquez Rubio MD [phone] [facility] Immunolo gy/Serol ogy VZV IgG LC 307 index 09/30 Result Comment: Negative <135 Equivocal 135 - 165 Positive >165 A positive result generally indicates exposure to the pathogen or administrat ion of specific immunoglobu shira, but it is not indication of active infection or stage of disease. Performed At: [address] [place] [address] [address] Belinda Aguilar [address] [place], [place] [id number] Vazquez Rubio MD [phone] [facility] Vital Signs Combined list of inpatient and outpatient Vital Signs from Department of Defense and Veterans Affairs, ranging from 12 months to all on record, depending upon the facility. Vital Sign Value Date Comments Source Systolic Blood Pressure 118mm[Hg] 10/06/2021 16:03:00 Ambulatory Pharmacy Diastolic Blood Pressure 62mm[Hg] 10/06/2021 16:03:00 Ambulatory Pharmacy Mean Arterial Pressure, Calc 81mm[Hg] 10/06/2021 16:03:00 Ambulatory [facility]acy Peripheral Pulse Rate 66bpm 10/06/2021 16:03:00 Ambulatory Pharmacy Respiratory Rate 16br/min 10/06/2021 16:03:00 Ambulatory Pharmacy Temperature Oral 36.7Cel 10/06/2021 16:03:00 Ambulatory Pharmacy Systolic Blood Pressure 109mm[Hg] 10/16/2021 14:05:00 Ambulatory Pharmacy Diastolic Blood Pressure 64mm[Hg] 10/16/2021 14:05:00 Ambulatory Pharmacy Mean Arterial Pressure, Calc 79mm[Hg] 10/16/2021 14:05:00 Ambulatory P harmacy Peripheral Pulse Rate 77bpm 10/16/2021 14:05:00 Ambulatory Pharmacy Respiratory Rate 16br/min 10/16/2021 14:05:00 Ambulatory Pharmacy Temperature Oral 36.6Cel 10/16/2021 14:05:00 Ambulatory Pharmacy Systolic Blood Pressure 115mm[Hg] 11/04/2021 15:15:00 Ambulatory Pharmacy Diastolic Blood Pressure 74mm[Hg] 11/04/2021 15:15:00 Ambulatory Pharmacy Mean Arterial Pressure, Calc 88mm[Hg] 11/04/2021 15:15:00 Ambulatory P harmacy Peripheral Pulse Rate 66bpm 11/04/2021 15:15:00 Ambulatory Pharmacy Respiratory Rate 14br/min 11/04/2021 15:15:00 Ambulatory Pharmacy Temperature Oral 37Cel 11/04/2021 15:15:00 Ambulatory Pharmacy BP Site 11/04/2021 15:15:00 [facility] Blood Pressure Manual 11/04/2021 15:15:00 Ambulatory Pharmacy Systolic Blood Pressure 114mm[Hg] 05/06/2022 13:02:00 Ambulatory Pharmacy Diastolic Blood Pressure 64mm[Hg] 05/06/2022 13:02:00 Ambulatory Pharmacy Mean Arterial Pressure, Calc 81mm[Hg] 05/06/2022 13:02:00 Ambulatory P harmacy Peripheral Pulse Rate 81bpm 05/06/2022 13:02:00 Ambulatory Pharmacy Respiratory Rate 14br/min 05/06/2022 13:02:00 Ambulatory Pharmacy Temperature Oral 36.8Cel 05/06/2022 13:02:00 Ambulatory Pharmacy Systolic Blood Pressure 111mm[Hg] 10/29/2021 15:47:00 Ambulatory Pharmacy Diastolic Blood Pressure 63mm[Hg] 10/29/2021 15:47:00 Ambulatory Pharmacy Mean Arterial Pressure, Calc 79mm[Hg] 10/29/2021 15:47:00 Ambulatory P harmacy Peripheral Pulse Rate 76bpm 10/29/2021 15:47:00 Ambulatory Pharmacy Respiratory Rate 14br/min 10/29/2021 15:47:00 Ambulatory Pharmacy Temperature Oral 37.0Cel 10/29/2021 15:47:00 Ambulatory Pharmacy BP Site 10/29/2021 15:47:00 [facility] Blood Pressure Manual 10/29/2021 15:47:00 Ambulatory Pharmacy Systolic Blood Pressure 110mm[Hg] 10/31/2021 15:24:00 Ambulatory Pharmacy Diastolic Blood Pressure 64mm[Hg] 10/31/2021 15:24:00 Ambulatory Pharmacy Mean Arterial Pressure, Calc 79mm[Hg] 10/31/2021 15:24:00 Ambulatory P harmacy Peripheral Pulse Rate 63bpm 10/31/2021 15:24:00 Ambulatory Pharmacy Respiratory Rate 16br/min 10/31/2021 15:24:00 Ambulatory Pharmacy Temperature Oral 37.0Cel 10/31/2021 15:24:00 Ambulatory Pharmacy BP Site 10/31/2021 15:24:00 [facility] Blood Pressure Manual 10/31/2021 15:24:00 Ambulatory Pharmacy Systolic Blood Pressure 119mm[Hg] 10/10/2021 14:16:00 Ambulatory Pharmacy Diastolic Blood Pressure 70mm[Hg] 10/10/2021 14:16:00 Ambulatory Pharmacy Mean Arterial Pressure, Calc 86mm[Hg] 10/10/2021 14:16:00 Ambulatory P harmacy Peripheral Pulse Rate 87bpm 10/10/2021 14:16:00 Ambulatory Pharmacy Respiratory Rate 18br/min 10/10/2021 14:16:00 Ambulatory Pharmacy Temperature Oral 37.3Cel 10/10/2021 14:16:00 Ambulatory Pharmacy Encounters Combined list of: 1) Encounters from Department of [facility] facilities going back up to [facility] 18 months. 2) Encounters from the Department [facility] facilities going back up to 280 months. Location Location Details Encounter Type Encounter Number Reason For Visit Attending Provider ADM Date DC Date Status Disposition Source [id number] AMDS Outpatient [id number] [facility] 12/26 Discharge Disposition: Home or Self Care [id number] AMDS [id number] AMDS Outpatient [id number] [facility] 01/16 Discharge Disposition: Home or Self Care [id number] AMDS Procedures Combined list of: 1) Procedures from Department of [facility] facilities going back up to [facility] 18 months, not all VA non-surgical procedures are included; 2) All procedures from the Department of [facility] facilities. Procedure Procedure Type Code Date Perfomer Comments Sourc e No data available for this section Ambulatory P harmacy Social History Combined list of available smoking, tobacco, and other social history from Department of Defense and Veterans Affairs facilities. Social History Type Response Date Comment Emir laws Male 09/25/2021 Ambulatory Pha rmacy Tobacco Never-cigarette user Cigarette use:. Never-other tobacco user (not cigarettes) Other Tobacco use:. Ambulatory Pharmacy Sexual Orientation [facility] Gender identity [facility] This section is an empty social history section. DoD Assessment and Plan Combined list of future care activities from Department of Defense and Veterans Affairs facilities (e.g., assessment and plan notes, appointments, orders, and referrals). Additional future care activities may be listed in the Plan of Care section. Result Assessment and Plan Date Source Assessment and Plan Extracted from:Title : OSS Author: YOLANDA UGALDE Date: 05/06/22 1.?Screening due see uploaded signed forms. [facility] Yolanda Ugalde [facility], [id number] Extracted from:Title: FU Rash to Lower Mid-axillary Author: MAAME GUEVARA NP Date: 11/04/21 1.?Dermatitis ? Noted erythemic patch to mid-axillary region?level of neck of humerus - approximately 4x4 inch diameter with corresponding erythemic patch (smaller area) to medial aspect of upper arm. The?erythemic patches are consistent with friction/rubbing between the adjacent skin region.?No signs of cellulitis/lymphangitis. ? Reassured. - Continue HC cream as previously prescribed. -?Keep skin clean and?moisturized with mild lotion. - Replace dirty/sweat soaked clothing immediately. ? Follow up in [facility] if symptoms persists or worsened. Seek care immediately if with Intractable Pain, Fast worsening rash/redness/swelling to skin,?Fever, Chest Pain or Difficulty Breathing. Educated on assessment and plan. He voiced understanding. ? Extracted from:Title: Office Clinic Note Author: SHAKIR REDMAN Date: 10/31/21 1.?Rash Appears well, not in distress. Ambulating without difficulty. Well groomed, in clean uniform. Answers questions appropriately. Alert and oriented x 3. VS normal - afebrile. ? Erythemic?patch clustered in the hair in armpit and?around the mid axillary region about 3 inches in diameter, no exudate, skin is intact, borders are defined and no TTP. Lungs CTA. S1 + S2. ? Presentation and exam findings consistent with:?Dermatitis ?? PCP ? Follow up in [facility] as needed. Seek care immediately if with Intractable Pain, Fever, Chest Pain or Difficulty Breathing. Educated on assessment and plan. He voiced understanding. ? I agree with above note and assessment. ? Examined patient. Discussed assessment and plan. Proceed with plan as outlined above. RRQ. ? Ordered: hydrocortisone topical(hydrocortisone 1% topical cream), 1 appl(s), Topical, BID, apply in a thin film to the affected skin and rub in gently and completely, # 28 g, 0 total refill(s), Acute, 1 appl(s) Topical BID,Instr:apply in a thin film to the affected skin and rub in gently and completely, Pharmacy: DO... ? Extracted from:Title: Office Clinic Note Author: SHAKIR REDMAN Date: 10/29/21 1.?URI - Upper respiratory infection Appears well, not in distress. Ambulating without difficulty. Well groomed, in clean uniform. Answers questions appropriately. Alert and oriented x 3. VS normal - afebrile. ? Bilateral anterior cervical lymphadenopathy, no TTP. R tonsil is +1, no exudate. Uvula midline. PEERL.?Bilateral ears normal, TM intact. Lungs CTA. S1 + S2. ? ? Presentation and exam findings consistent with: URI ? Reassured. Continue treatment as previously prescribed. ? PCP ? Follow up in [facility] as needed. Seek care immediately if with Intractable Pain, Fever, Chest Pain or Difficulty Breathing. Educated on assessment and plan. He voiced understanding. ? I agree with above note and assessment. ? Examined patient. Negative Stephens Screen. No leukocytosis. CXR Normal ? Discussed assessment and plan. Proceed with plan as outlined above. RRQ. ? Ordered: CBC w/ Diff Mononucleosis Screen XR Chest 2 Views ? Orders: benzocaine-menthol topical(Cepacol Sore Throat 15 mg-3.6 mg mucous membrane lozenge), 1 lozenge(s), Oral, every 2 hr, PRN sore throat, # 16 EA, 0 total refill(s), Acute, 11/05/2021, 1 lozenge(s) Oral every 2 hr,PRN:as needed for sore throat, Pharmacy: [facility] [Last filled 10/29/21] guaiFENesin(Mucinex 600 mg oral tablet, extended release), 1 tab(s), Oral, every 12 hr, # 20 tab(s), 0 total refill(s), Acute, 11/05/2021, 1 tab(s) Oral every 12 hr, Pharmacy: [facility] [Last filled 10/29/21] pseudoephedrine(pseudoePHEDrine 120 mg oral tablet, extended release), 1 tab(s), Oral, every 12 hr, PRN cold symptoms, # 20 tab(s), 0 total refill(s), Acute, 11/05/2021, 1 tab(s) Oral every 12 hr,PRN:as needed for cold symptoms, Pharmacy: [facility] [Last filled 10/29/21] benzonatate(Tessalon Perles 100 mg oral capsule), See Instructions, PRN cough, Take 1 pill 30 minutes prior to bed, # 8 cap(s), 0 total refill(s), Acute, 11/06/2021, Take 1 pill 30 minutes prior to bed,PRN:as needed for cough, Pharmacy: [facility] [Last filled 10/29/21] acetaminophen(Tylenol 325 mg oral tablet), 1 tab(s), Oral, every 4 hr, PRN pain or fever, # 12 tab(s), 0 total refill(s), Acute, 11/05/2021, 1 tab(s) Oral every 4 hr,PRN:as needed for pain or fever, Pharmacy: [facility] [Last filled 10/29/21] *Differential Automated Extracted from:Title: Office Clinic Note Author: KADE GARCIA Date: 10/16/21 1.?URI - Upper respiratory infection ?Appears well, not in distress. Ambulating without difficulty. Well groomed, in clean uniform. Answers questions appropriately. Alert and oriented x 3. VS normal - afebrile. ? Presentation and exam findings consistent with: URI, lung CTAB. Centor 1/5. ? ? ? Tonsils: Right tonsil 0+, Left 0+. No exudates.? ? ? Reassured. Take medication as directed. - Increase water intake 5-6 canteens per day.? - Light duty x48 hours. ? PCP Phase 3. ? Follow up in [facility]. Seek care immediately if with Intractable Pain, Fever, Chest Pain or Difficulty Breathing. Educated on assessment and plan. He voiced understanding. ? Agree with above. HD stable and afebrile. Supportive care. Plan as above. ? Bert whitt DO, [facility] Family[facility]Sports Medicine Physician [facility]? Extracted from:Title: Office Clinic Note Author: KADE GARCIA Date: 10/10/21 1.?Follow-up examination normal ?Appears well, not in distress. Ambulating without difficulty. Well groomed, in clean uniform. Answers questions appropriately. Alert and oriented x 3. VS normal - afebrile. ? Presentation and exam findings consistent with:?Recovered from chest wall pain. ? Reassured.? - Take Ibuprofen 800mg PRN. -?No medical restrictions. ? PCP?Phase 3 ? Follow up in [facility] for RTFD. Seek care immediately if with Intractable Pain, Fever, Chest Pain or Difficulty Breathing. Educated on assessment and plan. He voiced understanding. ? Agree with above. Chest wall pain resolved. Cleared to test out when able. ? Bert whitt DO, [facility] Family/Sports Medicine Physician [facility]? Extracted from:Title: Office Clinic Note Author: KADE GARCIA Date: 10/06/21 1.?Chest wall pain Appears well, not in distress. Ambulating without difficulty. Well groomed, in clean uniform. Answers questions appropriately. Alert and oriented x 3. VS normal - afebrile. ? Presentation and exam findings consistent with: Chest wall pain vs cardiopulmonary?disorders. ? Reassured.? - Take Ibuprofen 800mg TID. - Pt at own pace. ? ? MRP Phase?2 ? Follow up in [facility] , plan for phase 3 if without symptoms. Member is motivated to continue training. Seek care immediately if with Intractable Pain, Fever, Chest Pain or Difficulty Breathing. Educated on assessment and plan. He voiced understanding. ? Ordered: ibuprofen, 1 tab(s), Oral, every 8 hr, with food or milk, # 12 tab(s), 0 total refill(s), Acute, 10/11/2021, 1 tab(s) Oral every 8 hr,Instr:with food or milk, Pharmacy: [facility] [Last filled 10/06/21] ? I agree with above note and assessment. Examined patient. Discussed assessment and plan. Proceed with plan as outlined above. RRQ. ? ? 07/12/2024 Ambulatory Pharmacy Functional Status Combined list of recent functional and cognitive assessments recorded at Department of Defense and Veterans Affairs (VA).VA Functional [place] Measurement (FIM) Scale: 1 = Total Assistance (Subject = 0% +), 2 = Maximal Assistance (Subject = 25% +), 3 = Moderate Assistance (Subject = 50% +), 4 = Minimal Assistance (Subject = 75% +), 5 = Supervision, 6 = Modified [place] (Device), 7 = Complete [place] (Timely, Safely). Assessment Date/Time Source Assessment Type Assessment Skill Assessment Score Assessment Details No data available for this section
--- NOTE | 2024-07-12 09:01 | MHC.OFFWIV ---
Intake Vital Signs 07/12/24 09:04 Weight 192 lb BP 118/76 Blood Pressure Location Lt brachial Position Sitting Pulse 77 Pulse Source Pulse Oximeter Pulse Oximetry (%) 98 Oxygen Delivery Method Room Air Intake Visit Reasons: EP chest pain & cut outside the nose Intake Note: Patient here for left wallace pain that has been present for a while but has worsened over time. Patient Tobacco Use Status: Never used Tobacco Allergies No Known Allergies Allergy (Verified 07/12/24 09:05) Do you need a note to return to daycare/school/sports/work: Yes HPI HPI Comments History of Present Illness Details He presents to office with complaint of L wallace/leg pain He said last week he was running in soccer and experienced wallace pain Better with ice The next day at work; Wednesday he had increased pain in wallace + trauma picked to wallace Pain level with walking is 7/10 Rest 5/10 He said he has had in past; Crosscountry he had wallace splints PFSH Social History Patient Tobacco Use Status: Never used Tobacco Review of Systems Const Denies chills, Denies fever(s) and Denies weakness ENT Denies nasal discharge and Denies sore throat Card Denies chest pain Resp Denies cough Musc Denies back pain, Denies myalgias, Denies numbness, Reports stiffness, Denies tingling and Reports other (L wallace pain) Skin/Breast Denies erythema and Denies rash Neuro Denies numbness, Denies tingling, Denies paresthesias and Denies weakness Physical Exam Vital Signs: Last Vital Signs Pulse 77 07/12/24 09:04 BP 118/76 07/12/24 09:04 Pulse Ox 98 07/12/24 09:04 Oxygen Delivery Method Room Air 07/12/24 09:04 General: Non-toxic, NAD. Speaking full sentences. Skin: Warm dry throughout. Legs symmetrical in size and shape bilaterally. No ecchymosis, erythema or excessive warmth or palor Eye: EOMI Respiratory: No respiratory distress Cardiac: DP pulse intact bilaterally. No pitting edema bilaterally. No calf pain bilaterally MSK: No tenderness to palpation RLE, L knee, or proximal L tibial plateau. + ttp LLE distal medial wallace to ankle. No medial/lateral mallelo, achilles, calcaneus or plantar fascia ttp Neurology: Alert. No aphasia or facial droop. Gait without abnormality Psych: Good mood and affect Assessment & Plan Assessment & Plan (1) Wallace splints: Code(s): S86.899A - Other injury of other muscle(s) and tendon(s) at lower leg level, unspecified leg, initial encounter Qualifiers: Encounter type: initial encounter Laterality: left Qualified Code(s): S86.892A - Other injury of other muscle(s) and tendon(s) at lower leg level, left leg, initial encounter Plan: Patient seen and evaluated He is requesting xray to r/o fracture although minimal trauma at soccer He is ambulating well. I will call him after final interpretation is complete Pt referral given Rest, ice, MK provided F/U with PCP Call with concerns Pt expressed verbal understanding Orders: Orders PT Evaluation and Treatment Today S86.899A - Other injury of other muscle(s) and tendon(s) at lower leg level, unspecified leg, initial encounter XR tibia fibula LT 2V Today S86.899A - Other injury of other muscle(s) and tendon(s) at lower leg level, unspecified leg, initial encounter Coding Level of Care Code Est Pt Level 3 (00218) Diagnoses Left medial tibial stress syndrome, initial encounter S86.892A Encounter type: initial encounter Laterality: left
[2024-07-12 09:04] VITALS: BP 118/76; PULSE 77; O2SAT 98
== END 2024-07-12 09:22 | disposition home or self-care (01) ==
PROVIDERS: Visit Provider Physician Assistant
DX: S86.892A Other injury of other muscle(s) and tendon(s) at lower leg level, left leg, initial encounter (principal)

== ENCOUNTER → 2024-07-12 09:31 | Outpatient (BNV) | payer OTHER, SELFPAY | PROVIDERS: Visit Provider Radiology Diagnostic Radiology | DX: M84.362A Stress fracture, left tibia, initial encounter for fracture (principal) | CPT/HCPCS: 73590 ==

== ENCOUNTER 2025-03-13 08:47 | Outpatient (REF) | payer OTHER, SELFPAY ==
--- NOTE | ~2025-03-13 | XR_ITS ---
EXAMINATION: XR FOOT, LEFT CLINICAL INFORMATION: M79.672 - Pain in left foot COMPARISON: None available. TECHNIQUE: AP, lateral, and oblique views of the left foot. FINDINGS: The bones and soft tissues are normal. No fracture. Alignment is anatomic. Normal plantar arch. Joint spaces are maintained. XR/XR foot LT min 3V IMPRESSION: Normal left foot. Electronically signed by: Lucius Quezada MD 03/13/2025 09:37 AM EDT
== END 2025-03-13 08:48 | disposition home or self-care (01) ==
LOC: HO.HMGCX 08:47
PROVIDERS: PCP Family Medicine; Visit Provider Internal Medicine
DX: M79.672 Pain in left foot (principal)
CPT/HCPCS: 73630; 99212

== ENCOUNTER 2025-03-13 08:47 | Outpatient (AMB) | payer OTHER, SELFPAY ==
--- OUTSIDE RECORDS SUMMARY | 2012-03-14 10:45 | XMS_ITS | Continuity of Care Document ---
Author Organization [facility] Address [address] [place] [address] Phone Care Team Providers Care Drama Director Name Role Phone Ingris Xavier MD Unavailable Unavailable Allergies, Adverse Reactions, Alerts Substance Reaction Status Criticality No Known allergies Medications Medication Instructions Dosage Effective Dates (start - stop) Status Comments hydrocortisone 1 % Topical Cream apply by topical route every day to the affected area(s) - Active Procedures Procedure Date WALK OUT/PATIENT LEFT/UNABLE TO SEE [facility] ENT OFFICE/OUTPATIENT VISIT, EST TB TEST READING PREV VISIT, EST, AGE 5-11YRS OLD 2009 Established Patient 5-11yrs Advance Directives Directive Yes / No Effective Date File Name No Information Encounters Encounter Description Practice Location Reason(s) For Visit Diagnoses Date Provider Providers Copied on Encounter [facility], [address], [place], [id number], tel:[phone] MEDICAL WC No Information 2 Duc Amado. [address] [place], [address], . tel:[phone] OFFICE/OUTPAT IENT VISIT, EST [facility], [address], [place], [id number], tel:[phone] MEDICAL WC rash on legs (chief complaint) Rash and other nonspecific skin eruption 2 No Information [facility], [address] [place], [id number], [place] tel:[phone] MEDICAL No Information 2-201 0 Ancillary Provider. [address] [place], [address], . tel:[phone] PREV VISIT, EST, AGE 5-11YRS OLD [facility], [address], [place], [id number], [place] tel:[phone] MEDICAL No Information October- 0-201 0 Xavier Li. [address] [place], [address], [place]. tel:[phone] Family History Family Member Type Diagnosis Age At Onset No Information Payers Payer name Insurance type Covered green party ID Authoriza tion(s) No Information Social History Type Description Quantity Date Captured Comments Sex Male Smoking Status No Information Chief Complaint And Reason For Visit No Information Reason For Referral Reason For Referral No Information History Of Present Illness Encounter Date Complaint History Of Prese nt Illness No Information Functional Status Date Functional Assessmen t No Information Instructions Date Instruction Additional Infor mation No Information Assessments Type Assessment Date No Information Patient Care Teams Name Effective Dates (start - stop) Status Members No Information
--- OUTSIDE RECORDS SUMMARY | 2024-03-24 08:32 | XMS_ITS | Encounter Summary ---
Author Organization [facility] Address [address] [place] [address] Care Team Providers Care Windows Application Developer Name Role Phone Fabiola Rasmussen MD Primary Care Provider + Encounter Details Date Type Department Care Team (Late st Contact Info) Description 03/24/2024 8:32 AM EDT Hospital Encounter [facility] [address] [place] [address] Sujata Paula PA [address] [place] [address] Social History Tobacco Use Types Packs/Day Years Used Date Smoking Tobacco: Never Smokeless Tobacco: Never Sex and Gender Information Value Date Recorded Sex Assigned at Male 07/07/2024 11:11 AM EST Legal Sex Male 8:18 AM EDT Gender Identity Male 07/07/2024 11:11 AM EST Sexual Orientation Heterosexual (straight) 07/16 9:58 AM EST documented as of this encounter Plan of Treatment Not on file documented as of this encounter Procedures Procedure Name Priority Date/Time Associated Diagnosis Comments XR TIBIA/FIBULA 2 VIEWS-LEFT STAT 03/24/2024 8:36 AM EDT Pain in left wallace documented in this encounter Results * XR Tibia/fibula 2 views-Left (03/24/2024 8:36 AM EDT) Anatomical Region Laterality Modality Leg Left Computed Radiogr aphy 03/24/2024 8:38 AM EDT Impressions 03/24/2024 8:39 AM EDT Normal radiographic examination of the left lower leg. Narrative 03/24/2024 8:39 AM EDT COMPARISON: None TECHNIQUE: 2 views of the left lower leg FINDINGS: BONES: Normal. JOINTS: Normal. SOFT TISSUES: Normal. Procedure Note Christiano Leung MD - 03/24/2024 COMPARISON: None TECHNIQUE: 2 views of the left lower leg FINDINGS: BONES: Normal. JOINTS: Normal. SOFT TISSUES: Normal. IMPRESSION: Normal radiographic examination of the left lower leg. us Sujata [facility]AGING ORDERABLE S Final Result documented in this encounter Visit Diagnoses Not on filedocumented in this encounter Care Teams Windows Application Developer Relationship Specialty Start Date End Date Fabiola Rasmussen MD PCP - General Family Medicine 03/24/24 documented as of this encounter
[2025-03-13 08:51] VITALS: BP 122/78; PULSE 73; RESP 16; TEMP 37.1; O2SAT 97; BMI 28.6
--- NOTE | 2025-03-13 08:51 | MHC.OFFWIV ---
Intake Vital Signs 03/13/25 08:51 Height 5 ft 9 in Weight 194 lb BMI 28.6 BP 122/78 Blood Pressure Location Lt brachial Position Sitting Respiration 16 Pulse 73 Pulse Source Pulse Oximeter Temp 98.8 F Temp Source Oral Pulse Oximetry (%) 97 Intake Visit Reasons: EP LT ankle pain Patient Tobacco Use Status: Never used Tobacco Allergies No Known Allergies Allergy (Verified 03/13/25 08:52) Medication List - Last Reconciled 03/13/25 by Sam Dyson MD No Known Home Meds HPI EP LT ankle pain HPI Details History of Present Illness The patient is a 24-year-old male presenting with left foot pain. Left foot pain: - The patient reports the onset of pain approximately three weeks ago after being stepped on hard while playing soccer. - Initially, the pain lasted from Wednesday to Wednesday morning and was significant enough to make walking painful. 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 - The patient reports that since the episode on Wednesday, it has been painful to walk and perform daily activities. Medications: - Tylenol and Ibuprofen for pain. Social History: - Employed in the , requiring periods of prolonged standing and proper footwear usage. 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 Problem List - Pain left foot. Patient Instructions - Rest the foot as much as possible to allow healing. - Schedule an x-ray to rule out any fracture. - Continue taking Tylenol and Ibuprofen as needed for pain management. - Consider taking the rest of the week off to recover. Review of Systems - General: No fever no chills - Neurological: No headaches no dizziness - Ear nose throat: No sore throat no hearing difficulty no ear pain - Cardiovascular: No syncope, no chest pain, no palpitations - Gastrointestinal: No nausea vomiting or diarrhea Physical Exam General: No acute distress HEENT: No acute findings Neck: Supple Respiratory system: Able to talk in full sentences, no audible wheeze Gastrointestinal: No pain Extremities: Tenderness in the left foot, laterally around heal , ankle without pain with movement or palpation PATIENT CARE SPECIALIST: Alert awake oriented x3 motor sensory intact Skin: Normal turgor PFS Social History Patient Tobacco Use Status: Never used Tobacco Physical Exam Vital Signs: Last Vital Signs Temp 98.8 F 03/13/25 08:51 Pulse 73 03/13/25 08:51 Resp 16 03/13/25 08:51 BP 122/78 03/13/25 08:51 Pulse Ox 97 03/13/25 08:51 BMI result Body Mass Index 28.6 Assessment & Plan Assessment & Plan (1) Foot pain, left: Code(s): M79.672 - Pain in left foot Plan History of Present Illness The patient is a 24-year-old male presenting with left foot pain. Left foot pain: - The patient reports the onset of pain approximately three weeks ago after being stepped on hard while playing soccer. - Initially, the pain lasted from Wednesday to Wednesday morning and was significant enough to make walking painful. 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 - The patient reports that since the episode on Wednesday, it has been painful to walk and perform daily activities. Medications: - Tylenol and Ibuprofen for pain. Social History: - Employed in the , requiring periods of prolonged standing and proper footwear usage. 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 Problem List - Pain left foot. Patient Instructions - Rest the foot as much as possible to allow healing. - Schedule an x-ray to rule out any fracture. - Continue taking Tylenol and Ibuprofen as needed for pain management. - Consider taking the rest of the week off to recover. Foot Xray came back normal Coding Level of Care Code Est Pt Level 3 (85435) Diagnoses Foot pain, left M79.672
--- OUTSIDE RECORDS SUMMARY | 2025-03-13 10:39 | XMS_ITS ---
Author Name [facility] Organization Unknown History of Medication Use Medication Directions Dispensed Refills Start Date End Date Stat us magic mouthwash oral suspension (mixture) Swish and spit 15 mL 4 (four) times a day as needed for mucositis or stomatitis. 04/25/2024 05/03/2024 active lidocaine (XYLOCAINE) 2 % mouth solution 5 mL 5 mL, Mouth/Throat, Once, On Wed04/25/24 at 1000, For 1 dose 04/25/2024 04/25/2024 completed No known medications No known medications active Problems Problem Status Onset Date Problem Type Date of Resoluti on Source Nausea vomiting and diarrhea active EncounterDiagnosisAct CCT Encounters Encounter Type Encounter Reason Primary Diagnosis Location Date Ambulatory Vomiting Vomiting Belly 07/18/2024 Ambulatory Vomiting, nausea, diarrhea, Vomiting, nausea, diarrhea, Reveal Data 04/25/2024 Ambulatory Belly 03/24/2024 Ambulatory Leg Pain Leg Pain Belly 03/24/2024 Care Team Organization Name Specialty Phone Email Start Date End Da te [facility] 11/08/2024 Reveal Data [facility] 03/24/2024 09/13/2024 Reveal Data 03/24/2024 Reveal Data [facility] 03/24/2024
--- OUTSIDE RECORDS SUMMARY | 2025-03-13 10:39 | XMS_ITS | Clinical Summary ---
Author Organization [facility] Address [address] [place] [id number] Care Team Providers Care Density Control Puncher Name Role Phone Fabiola Rasmussen MD Primary Care Provider + Allergies No known active allergies Medications lidocaine (XYLOCAINE) 2 % solutionIndications :Acute gastritis without hemorrhage, unspecified gastritis type Take 5 mL by mouth 4 (four) times a day as needed for mild pain. Swish and spit. 100 mL Active ondansetron (ZOFRAN-ODT) 4 MG disintegrating tabletIndications:A cute gastritis without hemorrhage, unspecified gastritis type Take 1 tablet (4 mg total) by mouth 3 times daily (every 8 hours) as needed for nausea or vomiting. Place tablet on tongue to dissolve. 20 tablet Active Active Problems No known active problems Social History Tobacco Use Types Packs/Day Years Used Date Smoking Tobacco: Never Smokeless Tobacco: Never Tobacco Cessation:Counseling Given: Not Answered Sex and Gender Information Value Date Recorded Sex Assigned at Male 07/07/2024 11:11 AM EST Legal Sex Male 8:18 AM EDT Gender Identity Male 07/07/2024 11:11 AM EST Sexual Orientation Heterosexual (straight) 07/16 9:58 AM EST Last Filed Vital Signs Vital Sign Reading Time Taken Comments Blood Pressure 110/71 07/18/2024 8:10 AM EST Pulse 82 07/18/2024 8:10 AM EST Temperature 36.8 C (98.2 F) 07/18/2024 8:10 AM EST Respiratory Rate 14 03/24/2024 8:26 AM EDT Oxygen Saturation 99% 04/25/2024 9:40 AM EDT Inhaled Oxygen Concentration - - Weight 88.5 kg (195 lb) 07/18/2024 8:10 AM EST Height 175.3 cm (5' 9 ) 07/18/2024 8:10 AM EST Body Mass Index 28.8 07/18/2024 8:10 AM EST Plan of Treatment Health Maintenance Due Date Last Done Comments Hepatitis C Virus Screening 2002 HIV Screening 12/04/2015 HPV Vaccines (1 - Male 3-dos e series) 2017 DTaP/Tdap/Td Vaccines (1 - Tdap) 2021 Hepatitis B Vaccines (1 of 3 - 19+ 3-dose series) 2021 Influenza Vaccine 01/26/2025 COVID-19 Vaccine (1 - 2023-2 5 season) 2025 Pneumococcal Vaccine: Pediat norma (0-5 Years) and At-Risk Patients (6 to 49 Years) Aged Out No longer eligible b ased on patient's age to complete this topic Insurance [facility] Care Teams Density Control Puncher Relationship Specialty Start Date End Date Fabiola Rasmussen MD PCP - General Family Medicine 03/24/24
== END 2025-03-13 09:18 | disposition home or self-care (01) ==
PROVIDERS: PCP Internal Medicine; Visit Provider Internal Medicine
DX: M79.672 Pain in left foot (principal)

== ENCOUNTER → 2025-03-13 09:27 | Outpatient (BNV) | payer OTHER, SELFPAY | PROVIDERS: PCP Family Medicine; Visit Provider Radiology Diagnostic Radiology | DX: M79.672 Pain in left foot (principal) | CPT/HCPCS: 73630 ==

== ENCOUNTER 2025-05-15 10:42 | Outpatient (AMB) | payer OTHER, SELFPAY ==
[2025-05-15 10:43] VITALS: BP 112/60; PULSE 80; TEMP 36.8; O2SAT 97; BMI 27.6
--- NOTE | 2025-05-15 10:43 | MHC.OFFWIV ---
Intake Vital Signs 05/15/25 10:43 Height 5 ft 9 in Weight 187 lb BMI 27.6 BP 112/60 Blood Pressure Location Lt brachial Position Sitting Pulse 80 Pulse Source Pulse Oximeter Temp 98.3 F Temp Source Oral Pulse Oximetry (%) 97 Oxygen Delivery Method Room Air Intake Visit Reasons: EP-headaches, dizziness Patient Tobacco Use Status: Never used Tobacco Allergies No Known Allergies Allergy (Verified 05/15/25 10:47) Do you need a note to return to daycare/school/sports/work: Yes HPI HPI Comments History of Present Illness Details History of Present Illness - The patient is a 24-year-old male presenting with headaches and dizziness which resolved. - The patient sustained an elbow to the nose and forehead while playing soccer, leading to immediate dizziness and blurred vision, this occurred last night. No loss of consciousness. Continued to play soccer then a little while later, developed symptoms. - The patient experienced a headache rated 7/10 in severity, worsened by light exposure, and dizziness that improved overnight. - No medication/tylenol was taken initially. - No prior history of concussions reported. - Blurry vision is now resolved, no current vision changes. Denies nausea or vomiting. [facility] Social History Patient Tobacco Use Status: Never used Tobacco Review of Systems Narrative Review of Systems - Neurological: Reports dizziness and headache. Denies nausea, vomiting, or vision changes currently. - Ophthalmologic: Reports photophobia. All systems reviewed and are unremarkable except as noted in HPI Const All systems reviewed & are unremarkable except as noted in HPI and below Physical Exam Exam Exam: Physical Exam General: Cooperative, healthy appearing, comfortable, no acute distress and well developed Orientation: Patient oriented x3 Limitations: No limitations Head: Cut on the top of the nose, normal to inspection otherwise Ears: Hearing grossly normal bilaterally Nose: Cut on the top of the nose Face and sinus: Normal facial exam Eyes: Appearance normal, both eyes and all related structures, no vision changes currently Neck: Normal visual inspection and Yes full ROM Respiratory: Normal respiratory effort and able to speak in complete sentences. Skin: No rashes or lesions noted Neuro: Patient oriented x3, cranial nerves intact Extremities: Normal to inspection Vital Signs: Last Vital Signs Temp 98.3 F 05/15/25 10:43 Pulse 80 05/15/25 10:43 BP 112/60 05/15/25 10:43 Pulse Ox 97 05/15/25 10:43 Oxygen Delivery Method Room Air 05/15/25 10:43 BMI result Body Mass Index 27.6 Assessment & Plan Assessment & Plan (1) Mild concussion: Code(s): S06.0XAA - Concussion with loss of consciousness status unknown, initial encounter Qualifiers: Encounter type: initial encounter Loss of consciousness presence/duration: without LOC Qualified Code(s): S06.0X0A - Concussion without loss of consciousness, initial encounter Plan Patient was informed and verbally consented to the use of an ambient scribe for clinic note documentation during this visit. Concussion - Advised brain rest, including avoiding screens and bright lights, noise and resting in a dark room. - Recommended Tylenol 1000 mg every 8 hours for headache management. Can add 600mg ibuprofen eery 6 hours. - Instructed to seek emergency care if symptoms worsen or new symptoms such as nausea, vomiting, or vision changes occur or if headache does not go away despite tylenol or ibuprofen use. Coding Level of Care Code Est Pt Level 3 (98963) Diagnoses Concussion without loss of consciousness, initial encounter S06.0X0A Encounter type: initial encounter Loss of consciousness presence/duration: without LOC
== END 2025-05-15 11:29 | disposition home or self-care (01) ==
PROVIDERS: PCP Internal Medicine; Visit Provider Physician Assistant
DX: S06.0X0A Concussion without loss of consciousness, initial encounter (principal)

== ENCOUNTER → 2025-05-15 10:42 | Outpatient (BNVA) | payer OTHER, SELFPAY | PROVIDERS: PCP Internal Medicine; Visit Provider Physician Assistant | DX: S06.0X0A Concussion without loss of consciousness, initial encounter (principal); W21.02XA Struck by soccer ball, initial encounter; Y93.9 Activity, unspecified; Y92.9 Unspecified place or not applicable | CPT/HCPCS: 99212 ==